=== PATIENT | female | born 1990 | race Caucasian/White ===

== ENCOUNTER 2017-03-18 15:25 | Emergency (ER) | payer MEDICAID ==
[~2017-03-18] VITALS: Ht 167.6 cm; Wt 108.2 kg
[2017-03-18] MEDS ORDERED: FOLI-97 PO (15:32)
[2017-03-18 15:42] LABS: GLUCOSE,POINT OF CARE 94 MG/DL (70-110)
[2017-03-18] MEDS ORDERED: FLUORESCEIN SODIUM 1 MG STRIP ONE (15:55)
[2017-03-18] MEDS ORDERED: IBUPROFEN 800 MG TABLET PO ONE (16:00)
[2017-03-18] MEDS ORDERED: HYDROCODONE/ACETAMINOPHEN 5-325 MG TABLET PO ONE (16:00)
[2017-03-18] MEDS ORDERED: GENTAMICIN SULFATE 0.3% OPHTHALMIC SOLUTION 5 ML OS ONE (16:30)
[2017-03-18 17:12] VITALS: BP 124/80
== END 2017-03-18 17:14 | disposition home or self-care (01) ==
LOC: EMS 15:27
DX: S00.12XA Contusion of left eyelid and periocular area, initial encounter (principal); H11.32 Conjunctival hemorrhage, left eye; F17.210 Nicotine dependence, cigarettes, uncomplicated; Y04.0XXA Assault by unarmed brawl or fight, initial encounter; Y93.89 Activity, other specified; Y92.89 Other specified places as the place of occurrence of the external cause; Y99.8 Other external cause status
CPT/HCPCS: 82962; 99283